=== PATIENT | female | born 1980 | race Caucasian/White ===

== ENCOUNTER 2017-03-28 19:25 | Outpatient (CLI) | payer OTHER ==
[~2017-03-28] VITALS: Ht 162.6 cm; Wt 71.8 kg
[~2017-03-28 19:25] MED LIST: ALLERGY SHOTS; BENADRYL25 M2 PO; FLONASE NASAL S16 GM NS; NORCO 325 MG-51 TAB PO; PEPCID 20MG TAB20 MG PO; PERCOCET 325 MG1 TA2 PO; PRENATAL1 TA2 PO; PRIL40 PO; PRILOSEC 20MG20 MG PO; XANAX .25M0.25 MG/TA PO; ZOFRAN 4MG T4 MG/TAB PO; ZOFRAN ODT4 MG PO; ZYRTEC ALLERGY10 MG PO
[2017-03-28 19:41] VITALS: BP 119/77; PULSE 76; TEMP 98.2
[2017-03-28] MEDS ORDERED: TUMS500 MG PO (19:51)
[2017-03-28] MEDS ORDERED: [UNRECOGNIZED DRUG - REMARK] PO (19:52)
[2017-03-28] MEDS ORDERED: PRENATAL PO (19:52)
[2017-03-28] MEDS ORDERED: ALLERGY INJECTIONS SQ (19:56)
[2017-03-28 20:00] VITALS: BP 119/77; PULSE 76; TEMP 98.2
== END 2017-03-28 21:15 | disposition home or self-care (01) ==
LOC: LDRO 19:25
DX: O36.8130 Decreased fetal movements, third trimester, not applicable or unspecified (principal); Z3A.34 34 weeks gestation of pregnancy

== ENCOUNTER 2017-05-06 07:37 | Inpatient (IN) | payer OTHER ==
[~2017-05-06] VITALS: Ht 162.7 cm; Wt 75.9 kg
[2017-05-06] VITALS (35 sets, daily range): BP systolic 105–164; BP diastolic 55–99; PULSE 49–102; TEMP 98–98.8
[~2017-05-06 07:37] MED LIST changes: +ALLERGY INJECTIONS SQ; +PRENATAL PO; +TUMS500 MG PO; +[UNRECOGNIZED DRUG - REMARK] PO
[2017-05-06 08:57] LABS: BASO % 0.3 % (0.0-2.0); EOS # 0.1 (0.0-0.7); EOS % 0.5 % (0-4.0); GRAN # 10.7 (1.4-6.5); GRAN % 81.5 % (42.2-75.2); LYMPH # 1.4 (1.2-3.4); LYMPH % 10.8 % (20.0-51.0); MEAN CELL VOLUME 85 fl (80.0-100.0); MEAN CORPUSCULAR HGB CONC 34 g/dl (33.0-37.0); MEAN PLATELET VOLUME 10.7 fl (7.4-10.4); MONO # 0.8 (0.1-0.6); MONO % 6.2 % (1.7-9.3); PLATELET COUNT 222 K/mm3 (130-400); REDCELL DISTRIBUTION WIDTH-CV 12.6 % (11.5-14.5); WHITE BLOOD COUNT 13.2 K/mm3 (4.8-10.8)
[2017-05-06 08:59] LABS: HEMATOCRIT 34.9 % (37.0-47.0); HEMOGLOBIN 11.9 g/dl (12.5-16.0); MEAN CORPUSCULAR HEMOGLOBIN 29 pg (27.0-31.0)
[2017-05-07 02:00] VITALS: BP 136/68; PULSE 70; TEMP 97.4
[2017-05-07 05:00] VITALS: BP 140/75; PULSE 77; TEMP 97.6
[2017-05-07 08:14] LABS: MEAN CELL VOLUME 86 fl (80.0-100.0); MEAN CORPUSCULAR HGB CONC 33 g/dl (33.0-37.0); MEAN PLATELET VOLUME 10.3 fl (7.4-10.4); PLATELET COUNT 184 K/mm3 (130-400); REDCELL DISTRIBUTION WIDTH-CV 12.9 % (11.5-14.5); WHITE BLOOD COUNT 18.8 K/mm3 (4.8-10.8)
[2017-05-07 08:18] LABS: ADD PATHOLOGY DIFF REVIEW NO; HEMOGLOBIN 10.3 g/dl (12.5-16.0); MEAN CORPUSCULAR HEMOGLOBIN 29 pg (27.0-31.0)
[2017-05-07 08:58] LABS: BAND 19 % (0-10); EOSINOPHIL 1 % (0-4); NEUTROPHILS 72 % (42.0-75.2); TOTAL CELLS COUNTED 100
[2017-05-07 09:01] LABS: PLATELET ESTIMATE NORMAL (NORMAL)
[2017-05-07 09:57] VITALS: BP 125/60; PULSE 67; TEMP 97.8
[2017-05-07 16:50] VITALS: BP 102/66; PULSE 67; TEMP 98
[2017-05-07 21:00] VITALS: BP 124/72; PULSE 83; TEMP 97.7
[2017-05-08 09:24] LABS: MEAN CELL VOLUME 89 fl (80.0-100.0); MEAN CORPUSCULAR HGB CONC 33 g/dl (33.0-37.0); MEAN PLATELET VOLUME 10.4 fl (7.4-10.4); PLATELET COUNT 234 K/mm3 (130-400); RED BLOOD COUNT 3.36 M/mm3 (4.10-5.30); REDCELL DISTRIBUTION WIDTH-CV 13.2 % (11.5-14.5); WHITE BLOOD COUNT 15.8 K/mm3 (4.8-10.8)
[2017-05-08 09:26] LABS: HEMOGLOBIN 9.8 g/dl (12.5-16.0); MEAN CORPUSCULAR HEMOGLOBIN 29 pg (27.0-31.0)
[2017-05-08 09:28] VITALS: BP 117/71; PULSE 59
[2017-05-08] MEDS ORDERED: PERCOCET 325 MG1 TA2 PO (10:48)
[2017-05-08] MEDS ORDERED: MOTRIN 800800 MG/TAB PO (10:48)
[2017-05-08 20:30] VITALS: BP 131/70; PULSE 57; TEMP 98
[2017-05-09 07:03] VITALS: BP 147/72; PULSE 58
[2017-05-09 13:34] VITALS: BP 140/74; PULSE 57
== END 2017-05-09 14:05 | disposition home or self-care (01) | DRG 765 ==
LOC: LDRO 07:37 → LDR 08:00 → OB 15:30 → LDRO 05-08 16:39 → OB 05-09 14:05 → LDRO 05-09 14:10
PROVIDERS: Student in an Organized Health Care Education/Training Program
PROC: 10D00Z1 Extraction of Products of Conception, Low, Open Approach (ICD-10-PCS; principal; 2017-05-06)
DX: O76 Abnormality in fetal heart rate and rhythm complicating labor and delivery (principal); O36.0130 Maternal care for anti-D [Rh] antibodies, third trimester, not applicable or unspecified; O99.824 Streptococcus B carrier state complicating childbirth; Z3A.39 39 weeks gestation of pregnancy; Z37.0 Single live birth
CPT/HCPCS: J0690; J1885; J2270; J2400; J2405; J2704; J2791; J3370; J7050; J7120

== ENCOUNTER → 2017-06-21 | Outpatient (CLI) | payer OTHER ==
[~2017-06-21] MED LIST changes: +MOTRIN 800800 MG/TAB PO
== END ==
LOC: COL.RAD 15:31
DX: N61.0 Mastitis without abscess (principal); L53.9 Erythematous condition, unspecified

== ENCOUNTER → 2019-11-14 | Outpatient (CLI) | payer BC | LOC: COL.RAD 11-13 08:00 | DX: Z87.59 Personal history of other complications of pregnancy, childbirth and the puerperium (principal) | CPT/HCPCS: Q9967 ==

== ENCOUNTER → 2020-08-23 | Outpatient (CLI) | payer BC | LOC: ZCOL.LAB 19:59 | DX: J20.9 Acute bronchitis, unspecified (principal); Z20.828 Contact with and (suspected) exposure to other viral communicable diseases ==

== ENCOUNTER → 2021-08-07 | Outpatient (CLI) | payer BC | LOC: MC.RAD 11:00 | DX: N63.10 Unspecified lump in the right breast, unspecified quadrant (principal) ==